=== PATIENT | female | born 1990 | race Caucasian/White ===

== ENCOUNTER 2017-08-26 10:32 | Outpatient (CLI) | payer BC ==
[~2017-08-26] VITALS: Ht 157.5 cm; Wt 68.2 kg
[~2017-08-26 10:32] MED LIST: MTR600X PO; PEDICHW50 PO
[2017-08-26 11:53] VITALS: Ht 157.5 cm; Wt 68.2 kg
[2017-08-26 12:03] LABS: HEMATOCRIT 32.9 % (37-47); MEAN CELL VOLUME 91.9 fL (80-100); MEAN CORPUSCULAR HEMOGLOBIN 31.6 pg (25-34); MEAN CORPUSCULAR HGB CONC 34.3 g/dl (32-36); PLATELET COUNT 251 K/uL (130-400); RED BLOOD COUNT 3.58 M/uL (4.2-5.4); WHITE BLOOD COUNT 14.41 K/uL (4.8-10.8)
[2017-08-26 12:09] LABS: URINE APPEARANCE CLOUDY (CLEAR); URINE BILIRUBIN NEG (NEG); URINE COLOR YELLOW; URINE EPITHELIAL CELL AUTO >30 /lpf (0-5); URINE NITRITE NEG (NEG); URINE PH 5.5 (4.5-7.5); URINE SPECIFIC GRAVITY 1.025 (1.000-1.030); UROBILINOGEN NEG (NEG); ZZUR CULT IF INDIC CLEAN CATCH YES
[2017-08-26 12:12] LABS: MANUAL MICROSCOPIC REQUIRED? NO; REVIEW REQ? NO
[2017-08-26 12:25] LABS: BASO ABS # 0.13 K/uL (0-0.2); BASOPHIL % 0.9 %; COMPLETE YES; EOSINOPHIL % 2.6 %; LYMPHOCYTE % 10.4 %; NEUTROPHILS % 83.5 %
--- NOTE | 2017-08-26 14:13 | DIAGNOSTIC IMAGING REPORT ---
LIMITED ULTRASOUND CLINICAL HISTORY: . Evaluate cervical length. COMPARISON STUDY: No previous studies for comparison. FINDINGS: A limited ultrasound was performed. The femur measured 4.3 cm corresponding to a postmenstrual age of 24 weeks and 1 day. The [employer] measured 5.7 cm corresponding to a postmenstrual age of 22 weeks and 4 days. The cervix was poorly visualized on transabdominal imaging. At the physician's request, endovaginal scanning was not performed. There is a complete previa. The placenta appear heterogeneous. The cervix was estimated to measure 16 mm, but this measurement is not felt to be reliable. The ventricles were the upper limits of normal diameter measuring 9.9 mm IMPRESSION: 1. Complete placenta previa 2. Suboptimal visualization of the cervix. The estimated cervical length of 16 mm was obtained but this measurement is not felt to be reliable. Endovaginal scanning would be more accurate, but at the referring physician's request, no endovaginal scan was performed Electronically signed by: Jean-Paul Renteria M.D. 08/26/2017 2:11 PM Dictated Date/Time: 08/26/2017 2:06 PM
[2017-08-26] MEDS ORDERED: FERR1TAB13 PO (16:11)
[2017-08-26] MEDS ORDERED: PROG200C8 VAGRING (16:11)
--- NOTE | 2017-08-26 16:20 | DIAGNOSTIC IMAGING REPORT ---
TRANSVAGINAL CLINICAL HISTORY: 27 years-old Female presenting with CERVICAL length. TECHNIQUE: Real-time grayscale and M-mode Doppler ultrasound imaging of the pelvis was performed using a transvaginal probe for a limited evaluation of the cervix. COMPARISON: 08/26/2017 at 1:26 PM. FINDINGS: Cervix measures 1.5 cm in length and appears nondilated. The cervix is completely covered by the placenta at the internal os consistent with placenta previa. Other: No free fluid. IMPRESSION: Cervix measures 1.5 cm in length it appears closed. Electronically signed by: Lev Lou M.D. 08/26/2017 4:19 PM Dictated Date/Time: 08/26/2017 4:17 PM
== END 2017-08-26 17:00 | disposition home or self-care (01) ==
LOC: C.LD 10:32 → C.OPB 10:32
PROVIDERS: ATTEND Obstetrics & Gynecology
DX: O44.12 Complete placenta previa with hemorrhage, second trimester (principal); Z3A.23 23 weeks gestation of pregnancy

== ENCOUNTER 2017-09-25 09:00 | Outpatient (CLI) | payer BC ==
[~2017-09-25] VITALS: Ht 157.5 cm; Wt 69.2 kg
[~2017-09-25 09:00] MED LIST changes: +FERR1TAB13 PO; -MTR600X PO; +PROG200C8 VAGRING
[2017-09-25 09:17] VITALS: Ht 157.5 cm; Wt 69.2 kg
[2017-09-25] MEDS ORDERED: LACTATED RINGER'S 1000ML 500 ML IV ONE (09:27)
[2017-09-25] MEDS ORDERED: LACTATED RINGER'S 1000ML 1,000 ML IV SCH (09:27)
[2017-09-25] MEDS ORDERED: ONDANSETRON INJ 2 MG/ML 2 ML VIAL IV PRN (09:30)
[2017-09-25] MEDS ORDERED: MAGNESIUM SULFATE / WTR 1,000 ML IV ONE (09:54)
[2017-09-25] MEDS ORDERED: BETAMETH SOD PHOS/ACETATE IA 6 MG/ML IM SCH (10:00)
[2017-09-25 10:15] LABS: BASO % 0.1 %; BASO ABS # 0.02 K/uL (0-0.2); EOS % 1.7 %; EOS ABS # 0.27 K/uL (0-0.5); HEMOGLOBIN 11.5 g/dL (12.0-16.0); IG# 0.11 K/uL (0.00-0.02); LYMPH % 13.1 %; LYMPH ABS # 2.08 K/uL (1.2-3.4); MEAN CELL VOLUME 91.7 fL (80-100); MEAN CORPUSCULAR HEMOGLOBIN 31.9 pg (25-34); MEAN PLATELET VOLUME 10.2 fL (7.4-10.4); MONO % 6.8 %; MONO ABS # 1.07 K/uL (0.11-0.59); NEUT % 77.6 %; NEUT ABS # 12.27 K/uL (1.4-6.5); PLATELET COUNT 238 K/uL (130-400); RED CELL DISTRIBUTION WIDTH CV 12.4 % (11.5-14.5); WHITE BLOOD COUNT 15.82 K/uL (4.8-10.8)
[2017-09-25] MEDS ORDERED: MAGNESIUM SULFATE IV ONE ×2 (10:15)
[2017-09-25] MEDS ORDERED: [UNRECOGNIZED DRUG - OTHER] IV ONE (10:15)
[2017-09-25] MEDS ORDERED: [UNRECOGNIZED DRUG - OTHER] IV ONE (10:15)
[2017-09-25 10:16] LABS: MEAN CORPUSCULAR HGB CONC 34.8 g/dl (32-36)
[2017-09-25 10:22] LABS: PTT PATIENT 25.4 SECONDS (21.0-31.0)
[2017-09-25] MEDS ORDERED: MAGNESIUM SULFATE / WTR 1,000 ML IV SCH (10:30)
[2017-09-25] MEDS ORDERED: MAGNESIUM SULFATE 4GM / WTR 100ML IV ONE (10:30)
[2017-09-25 10:48] LABS: INR 0.9 (0.9-1.1)
== END 2017-09-25 11:05 | disposition short-term general hospital (02) ==
LOC: C.OPB 09:00 → C.LD 09:00 → C.OPB 11:05
PROVIDERS: ATTEND Obstetrics & Gynecology
DX: O44.13 Complete placenta previa with hemorrhage, third trimester (principal); O99.333 Smoking (tobacco) complicating pregnancy, third trimester; F17.200 Nicotine dependence, unspecified, uncomplicated; Z3A.28 28 weeks gestation of pregnancy